=== PATIENT | male | born 1985 | race Caucasian/White ===

== ENCOUNTER 2016-09-11 18:49 | Emergency (ER) | payer MEDICAID | END 2016-09-11 21:38 | disposition home or self-care (01) | LOC: D.ER 18:49 | DX: T21.21XA Burn of second degree of chest wall, initial encounter (principal); T22.10XA Burn of first degree of shoulder and upper limb, except wrist and hand, unspecified site, initial encounter; T31.10 Burns involving 10-19% of body surface with 0% to 9% third degree burns; X16.XXXA Contact with hot heating appliances, radiators and pipes, initial encounter; F17.200 Nicotine dependence, unspecified, uncomplicated ==

== ENCOUNTER 2017-05-09 15:51 | Emergency (ER) | payer MEDICAID | END 2017-05-09 17:50 | disposition home or self-care (01) | LOC: D.ER 15:51 | DX: M54.6 Pain in thoracic spine (principal) ==

== ENCOUNTER 2017-08-07 18:05 | Emergency (ER) | payer MEDICAID | END 2017-08-07 19:44 | disposition home or self-care (01) | LOC: D.ER 18:05 | DX: S93.402A Sprain of unspecified ligament of left ankle, initial encounter (principal); Y93.72 Activity, wrestling; Y92.019 Unspecified place in single-family (private) house as the place of occurrence of the external cause ==

== ENCOUNTER 2018-05-25 16:01 | Emergency (ER) | payer MEDICAID ==
[~2018-05-25] VITALS: Ht 162.6 cm; Wt 88.2 kg
[2018-05-25 16:15] VITALS: Ht 162.6 cm; Wt 88.2 kg
[2018-05-25] MEDS ORDERED: REXULTI1 MG PO (16:18)
[2018-05-25] MEDS ORDERED: TOPAMAX50 MG (16:19)
[2018-05-25] MEDS ORDERED: CYCLOBENZAPRINE10 MG PO (19:37)
[2018-05-25 19:56] VITALS: BP 142/60
== END 2018-05-25 19:56 | disposition home or self-care (01) ==
LOC: D.ER 16:01
DX: G89.29 Other chronic pain (principal); M54.6 Pain in thoracic spine

== ENCOUNTER 2018-10-22 19:22 | Emergency (ER) | payer MEDICAID ==
[~2018-10-22] VITALS: Ht 162.6 cm; Wt 86.4 kg
[~2018-10-22 19:22] MED LIST: CYCLOBENZAPRINE10 MG PO; REXULTI1 MG PO; TOPAMAX50 MG
[2018-10-22 19:27] VITALS: Ht 162.6 cm; Wt 86.4 kg
[2018-10-22] MEDS ORDERED: VOLTAREN75 MG PO (20:50)
[2018-10-22 21:03] VITALS: BP 128/77
== END 2018-10-22 21:03 | disposition home or self-care (01) ==
LOC: D.ER 19:22
DX: S29.012A Strain of muscle and tendon of back wall of thorax, initial encounter (principal); X50.1XXA Overexertion from prolonged static or awkward postures, initial encounter; F11.20 Opioid dependence, uncomplicated

== ENCOUNTER → 2019-05-23 14:44 | Outpatient (CLI) | payer MEDICAID ==
[2018-10-22 19:27] VITALS: BMI 32.7
[~2019-05-23 14:44] MED LIST changes: +VOLTAREN75 MG PO
== END | disposition home or self-care (01) ==
LOC: D.RAD 14:44
PROVIDERS: ATTEND Nurse Practitioner
DX: R20.9 Unspecified disturbances of skin sensation (principal); M54.2 Cervicalgia; M54.5 Low back pain

== ENCOUNTER 2020-06-22 17:19 | Emergency (ER) | payer BC ==
[~2020-06-22] VITALS: Ht 162.6 cm; Wt 86.4 kg
[2020-06-22 17:47] VITALS: Ht 162.6 cm; Wt 86.4 kg
[2020-06-22 19:59] VITALS: BP 131/80
== END 2020-07-09 06:24 | disposition left against medical advice (07) ==
LOC: D.ER 17:19
DX: M54.9 Dorsalgia, unspecified (principal)